=== PATIENT | female | born 1970 | race Hispanic/Latino ===

== ENCOUNTER → 2020-07-05 15:29 | Outpatient (CLI) | payer OTHER, MEDICAID, SELFPAY ==
[2020-07-05] MEDS: COVID-19 VACC, Ad26(JANSSEN)/PF 0.5 ML IM (15:38)
== END ==
PROVIDERS: Visit Provider Internal Medicine
DX: Z23 Encounter for immunization (principal)
CPT/HCPCS: 0031A; 91303